=== PATIENT | male | born 1990 | race Caucasian/White ===

== ENCOUNTER 2023-11-14 20:35 | Emergency (ER) | payer SELFPAY ==
[2023-11-14 20:36] VITALS: BP 158/98; PULSE 84; RESP 14; TEMP 36.8; O2SAT 97; BMI 24.3
--- NOTE | 2023-11-14 20:43 | W.ED.WOUNDLC ---
HPI - Wound/Laceration General: Chief Complaint: Wound/Laceration Stated Complaint: dog bite Time Seen by Provider: 11/14/23 20:41 Source: patient Mode of arrival: ambulatory Limitations: no limitations History of Present Illness: Patient is a 33-year-old male who presents to ED today for evaluation of a dog bite to his right index finger that he sustained just prior to arrival after his dogs were fighting and he got in between them. Dogs are up-to-date on immunizations. Last tetanus was approximately 5 to 7 years ago. Onset (ago): hour(s) Extremity Location: Left: hand (R index finger) Place: home Patient tetanus UTD: No Context: accidental Associated symptoms: Reports no associated symptoms Review of Systems Musc: Reports: extremity pain (R index finger); Denies: extremity swelling Skin/Breast: Reports: other (dog bite R finger) Neuro: Denies: numbness in extremities or sensory changes Physical Exam Const: COMMON NORMALS: no acute distress, patient oriented x3, no limitations, alert and well nourished GENERAL APPEARANCE: cooperative Extremity: COMMON NORMALS: full ROM and capillary refill normal GENERAL: Yes normal exam except as noted RIGHT UPPER EXTREMITY: Yes hand & digits Right hand and digits: Yes inspection (2.5cm laceration overlying volar R index PIP joint), Yes ROM exam (full ROM against resistance in all plains), Yes neurovascular exam (normal) and Yes tendon exam (no tendon involvement visualized) Neuro: COMMON NORMALS: patient oriented x3, moves all extremities, no focal motor deficits and no sensory deficits noted SENSORIUM/ORIENTATION: Yes alert Procedures Laceration Laceration 1: Site: hand (index finger) Side (If applicable): right Size (cm): 2.5 Description: irregular Depth: simple, single layer Local Anesthetic: lidocaine 1% (digital block) Amount of anesthesia used (mL): 3.0 Pre-repair: wound explored and irrigated extensively Skin layer closed with: nylon Size (cm): 4-0 Number of sutures: 3 Technique: simple, interrupted Course Vital Signs: Vital signs: Vital Signs Temperature 98.2 F 11/14/23 20:36 Pulse Rate 84 11/14/23 20:36 Respiratory Rate 14 11/14/23 20:36 Blood Pressure 158/98 11/14/23 20:36 Pulse Oximetry 97 11/14/23 20:36 Oxygen Delivery Me thod Room Air 11/14/23 20:36 MDM - Wound/Laceration Medical Decision Making Wound was copiously irrigated and loosely repaired as documented. XR showing injury to the proximal interphalangeal joint. He was given antibiotics here and will be sent home with Augmentin. Patient will be placed in a finger splint and given orthopedic follow-up. Strict return to ED precautions given in regards to infection. Lab Data Radiology Impressions Finger X-Ray 11/14/23 20:47 IMPRESSION: Diffuse soft tissue swelling noted with evidence of penetrating injury volar to the 2nd proximal interphalangeal joint. No radiopaque foreign body. No acute bony injury. All radiology interpretation(s) finalized by discharge Discharge Plan Discharge Patient Disposition: Home Clinical Impression: Dog bite of finger Qualifiers: Encounter type: initial encounter Qualified Code(s): S61.259A - Open bite of unspecified finger without damage to nail, initial encounter Condition: Stable Prescriptions: New amoxicillin-pot clavulanate 875-125 mg tablet 1 tab PO BID Qty: 14 0RF Discharge Orders: Discharge ED (Routine); Ordered 11/14/23 Ordered By: June Calvillo Patient Instructions: Animal Bite (ED), Finger Laceration (ED) Activity Restrictions/Additional Instructions: Keep wound/laceration clean with warm soap and water twice daily. Monitor for signs of infection such as redness, swelling, increased pain, or drainage. Please seek medical re-evaluation if these occur. If you received sutures today these will need to be removed (unless you were told by the provider that they are absorbable). The provider should have discussed with you the length of time until removal-7 DAYS. As we discussed I will place a case management referral to get you set up with orthopedics as your x-ray looks suspicious for a fracture. You need to fill your antibiotics immediately. As we discussed monitor for infection such as redness, swelling, severe pain with range of motion of your finger, streaking up your hand or arm, fevers, or any other concerns you may have. Please seek emergency evaluation if these occur. Stay in your splint until evaluated by orthopedics. 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
--- NOTE | 2023-11-14 20:47 | XRR_ITS ---
PROCEDURE INFORMATION: Exam: XR Right Finger(s) Exam date and time: 11/14/2023 8:54 PM Age: 33 years old Clinical indication: Injury or trauma; Other: Dog bite; Index finger; Right; Additional info: Dog bite/laceration TECHNIQUE: Imaging protocol: Radiologic exam of the right fingers. Views: Minimum 2 views. COMPARISON: No relevant prior studies available. FINDINGS: Bones/joints: No evidence of acute fracture or dislocation. No erosive disease. No significant degenerative change. Soft tissues: There is diffuse soft tissue swelling of the 2nd finger with gas along the volar aspect of the proximal interphalangeal joint. No radiopaque foreign body. XR/XR finger RT min 2V 38950 IMPRESSION: Diffuse soft tissue swelling noted with evidence of penetrating injury volar to the 2nd proximal interphalangeal joint. No radiopaque foreign body. No acute bony injury.
[2023-11-14] MEDS: amoxicillin-clav 875-125 mg Tablet 1 TAB PO (21:10)
[2023-11-14] MEDS: tetanus-dipt-pertussis 0.5 mL SDV IM (21:11)
[2023-11-14] MEDS: lidocaine 2% INJ 20 mL INJECTION (21:11)
--- NOTE | 2023-11-15 07:14 | DCPLANNER ---
Message sent to Ortho for follow up appt on a dog bite to the finger - proximal phalanx fx.
== END 2023-11-14 21:57 | disposition home or self-care (01) ==
PROVIDERS: Emergency Provider Physician Assistant
DX: S61.250A Open bite of right index finger without damage to nail, initial encounter (principal); W54.0XXA Bitten by dog, initial encounter; Z23 Encounter for immunization
CPT/HCPCS: 12001; 73140; 90471; 90715; 99283

== ENCOUNTER 2025-02-24 14:38 | Emergency (ER) | payer SELFPAY ==
[2025-02-24 14:56] VITALS: BP 124/67; PULSE 80; RESP 14; TEMP 36.8; O2SAT 98
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
[2025-02-24 16:49] VITALS: BP 111/71; PULSE 74; O2SAT 97
== END 2025-02-24 16:50 | disposition home or self-care (01) ==
PROVIDERS: Emergency Provider Physician Assistant
DX: S05.11XA Contusion of eyeball and orbital tissues, right eye, initial encounter (principal); Y04.2XXA Assault by strike against or bumped into by another person, initial encounter
CPT/HCPCS: 99281

== ENCOUNTER → 2025-04-09 11:30 | Outpatient (BNVA) | payer OTHER, SELFPAY | PROVIDERS: Visit Provider Nurse Practitioner Family | DX: R25.2 Cramp and spasm (principal) | CPT/HCPCS: 80053; 85025 ==

== ENCOUNTER 2025-08-23 13:45 | Emergency (ER) | payer SELFPAY ==
[2025-08-23 14:02] VITALS: BP 147/107; PULSE 114; RESP 17; O2SAT 98; BMI 22.8
--- NOTE | 2025-08-23 14:08 | W.ED.EXTPRO ---
HPI - Extremity Problem General: Chief complaint: Extremity Injury, Lower Stated complaint: Rt foot/ankle inj Time Seen by Provider: 08/23/25 13:49 Source: patient Mode of arrival: ambulatory Limitations: no limitations History of Present Illness: 35-year-old male states he had been sitting down for a long time when he stood up he noticed that he is having a slight right foot drop and difficulty time moving it. States this happened roughly an hour ago states that it is improving is getting a lot more movement in his foot currently he denies any injuries denies any back or hip pain denies any pain in his extremity Related Data Home Medications ?Medication ?Instructions ?Recorded ?Confirmed No Known Home Medications 04/09/25 04/09/25 Allergies Allergy/AdvReac Type Severity Reaction Status Date / Time No Known Allergies Allergy Verified 04/09/25 11:45 [facility] PFSH: Social History Smoking and tobacco/nicotine status: current every day tobacco/nicotine user (vape) Physical Exam Const: COMMON NORMALS: no acute distress, patient oriented x3 and healthy appearing HENMT: COMMON NORMALS: normocephalic and atraumatic HEAD & SCALP: normocephalic and atraumatic Neck/C-Spine: COMMON NORMALS: full ROM and supple Chest: COMMONS NORMALS: normal inspection of the chest Resp: COMMON NORMALS: normal respiratory effort Back/Pelvis: LUMBAR SPINE/LOWER BACK: No lumbar spinal tenderness Extremity: COMMON NORMALS: normal to inspection NARRATIVE EXTREMITY EXAM: Slight decreased flexion of the right foot but is able to flex at most of the leg no numbness Neuro: COMMON NORMALS: patient oriented x3, moves all extremities and no focal motor deficits Psych: COMMON NORMALS: mental status grossly normal, Normal thought process present and cooperative THOUGHT PROCESS: Normal thought process present Skin: COMMON NORMALS: no rashes or lesions noted and no wounds GENERAL SKIN EXAM: no rashes or lesions noted Course Vital Signs: Vital signs: Vital Signs Pulse Rate 114 H 08/23/25 14:02 Respiratory Rate 17 08/23/25 14:02 Blood Pressure 147/107 08/23/25 14:02 Pulse Oximetry 98 08/23/25 14:02 Oxygen Delivery Me thod Room Air 08/23/25 14:02 MDM - Extremity (Nontraumatic) Medical Decision Making Patient presents here with right foot drop differential includes cord compression epidural abscess doubly is very unlikely as he has no pain in his back no saddle anesthesia his symptoms are also improving currently. Patient likely had temporary compression of his peroneal nerve from sitting for extended time causing a slight neuropathy his symptoms are already improving at this time no imaging needed he is well-appearing here did go over this with him he stable for discharge follow-up with PCP return if worsening Medical Records I reviewed the patient's medical records. 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
== END 2025-08-23 14:15 | disposition home or self-care (01) ==
PROVIDERS: Emergency Provider Emergency Medicine
DX: M21.371 Foot drop, right foot (principal); F17.290 Nicotine dependence, other tobacco product, uncomplicated
CPT/HCPCS: 99281

== ENCOUNTER 2025-09-19 16:08 | Inpatient (IN) | payer SELFPAY ==
[2025-09-19 16:19] VITALS: BP 148/84; PULSE 121; RESP 18; TEMP 37.2; O2SAT 99
--- NOTE | 2025-09-19 16:30 | XRR_ITS ---
PROCEDURE INFORMATION: Exam: XR Left Shoulder Exam date and time: 09/19/2025 4:43 PM Age: 35 years old Clinical indication: Injury or trauma; Fall; Blunt trauma (contusions or hematomas); Shoulder; Left; Additional info: Fall x2 days TECHNIQUE: Imaging protocol: Radiologic exam of the left shoulder. Views: 2 or more views. COMPARISON: No relevant prior studies available. FINDINGS: Bones/joints: Normal. Soft tissues: Normal. XR/XR shoulder LT min 2V* [id number] IMPRESSION: No acute findings.
--- NOTE | 2025-09-19 16:31 | ED_ITS ---
Documented by User: GRETA Honeycutt 09/19/25 17:48 HPI - General Adult 2 General: Chief complaint: General Medical Stated complaint: Neck pain radiating into Lt shoulder Time Seen by Provider: 09/19/25 16:16 Source: patient and family Mode of arrival: ambulatory Limitations: no limitations History of Present Illness: Patient is a 35-year-old male who is brought into the emergency department by mom for multiple complaints. Patient provides history first, he states that 2 days ago he was running from dogs, jumped a fence and fell onto rocks onto his left shoulder he has had pain since. He states this is the only thing bothering him. Of note, he is extremely agitated appearing at this time, is exhibiting tangential conversation and flight of ideas, as well as delusional thought process stating that he has been seeing Jabari all around him. However he adamantly denies any SI or HI. Mom in the room, states that he is been very emotional recently, this seems to anger the patient and he becomes verbally aggressive towards his mother. I spoke to the patient's mom outside the room, she states that he has been extremely irritable recently, has been caring around a gun and she fears for her life as well has her family's life at home. She states that he has a history of bipolar and schizophrenia, however does not see a specialist nor does he take any medications. She does note that for the last 3 years he has been out of the [employer], and has seemingly gone downhill since. She states that he has been intermittently having episodes of crying as well, seemingly for no reason. She feels that he needs to be seen by a specialist due to the concern of him hurting himself or someone else at home. She is filling affidavit at this time. complaint: Mental health evaluation, left neck/shoulder pain Onset (ago): day(s) Associated symptoms: Deny chest pain, dyspnea, headache(s), nausea, palpitations or vomiting Related Data Home Medications ?Medication ?Instructions ?Recorded ?Confirmed No Known Home Medications 04/09/2503/14 Allergies Allergy/AdvReac Type Severity Reaction Status Date / Time No Known Allergies Allergy Verified 04/09/25 11:45 Review of Systems 2 General: Reports: 10 or more systems reviewed and unremarkable except in HPI and below Const: Denies: fever(s), chills or fatigue Card: Denies: chest pain, palpitations, swelling of feet/ankles or lightheadedness Resp: Denies: dyspnea, productive cough or wheezing GI: Reports: constipation; Denies: abdominal pain, nausea, vomiting or diarrhea Musc: Reports: neck pain and joint pain (left shoulder) Neuro: Denies: headache(s), numbness in extremities or weakness in extremities Psych: Reports: irritability and other (MHE); Denies: suicidal ideation or homicidal ideation PFSH ED 2 PFSH: Social History Smoking and tobacco/nicotine status: current every day tobacco/nicotine user (vape) Physical Exam 2 Const: COMMON NORMALS: no acute distress and patient oriented x3 GENERAL APPEARANCE: cooperative ORIENTATION/CONSCIOUSNESS: Yes awake, Yes oriented to person, Yes oriented to place and Yes oriented to time HENMT: COMMON NORMALS: normocephalic, atraumatic and hearing grossly normal bilaterally HEAD & SCALP: normocephalic and atraumatic Eye: COMMON NORMALS: Equal, round and reactive pupils present, EOMs intact bilaterally and conjunctivae normal CONJUNCTIVA: Yes conjunctivae normal P UPIL: Yes Equal, round and reactive pupils present Neck/C-Spine: COMMON NORMALS: full ROM, supple and no JVD OTHER: cervical muscles nontender to palpation Resp: COMMON NORMALS: normal respiratory effort, No retractions, No use of accessory muscles and clear to auscultation bilaterally AUSCULTATION: clear to auscultation bilaterally Cardio: COMMON NORMALS: no JVD, regular rate, regular rhythm, No clicks present (Cardio), No murmurs present (Cardio) and No rub (Cardio) RATE: r egular rate RHYTHM: regular rhythm Back/Pelvis: COMMON NORMALS: thoracic and lumbar spine normal to inspection, no thoracic nor lumbar tenderness and thoraco-lumbar ROM normal Extremity: COMMON NORMALS: normal to inspection, full ROM and capillary refill normal Neuro: COMMON NORMALS: patient oriented x3, moves all extremities, no focal motor deficits and no sensory deficits noted SENSORIUM/ORIENTATION: Yes oriented to person, Yes oriented to place and Yes oriented to time Psych: ATTITUDE: Yes agitated ACTIVITY/MOTOR BEHAVIOR: Yes Avoids eye contact (attititude/behavior) SPEECH: Yes excessive MOOD & AFFECT: Yes irritable THOUGHT PROCESS: Flight of ideas present, Illogical thought process present and Tangential thought process present THOUGHT CONTENT: No Suicidality present and No Homicidality present Skin: COMMON NORMALS: no rashes or lesions noted GENERAL SKIN EXAM: no rashes or lesions noted Course 2 Vital Signs: Vital signs: Vital Signs Temperature 99.0 F 09/19/25 16:19 Pulse Rate 121 H 09/19/25 16:19 Respiratory Rate 18 09/19/25 16:19 Blood Pressure 148/84 09/19/25 16:19 Pulse Oximetry 99 09/19/25 16:19 Oxygen Delivery Me thod Room Air 09/19/25 16:19 MDM - General Adult Medical Decision Making This patient presented for evaluation of left neck pain, however mom present tells me that the patient has been exhibiting concerning signs recently, please refer to the HPI for further details. After physical exam it is clear that patient is showing concerning signs for acute psychosis. Mom feels that affidavit, feel patient best suited evaluation in the neuropsychiatric unit, spoke with Dr. Gorman who agrees to accept the patient. Dr. Tatean to put in admit orders. Lab Data 09/19/25 16:52 09/19/25 16:52 Radiology Impressions Shoulder X-Ray 09/19/25 16:30 IMPRESSION: No acute findings. Laboratory Results WBC 5.63 10^3/uL (3.29-11.43) 09/19/25 16:52 RBC 4.26 10^6/uL (3.85-5.65) 09/19/25 16:52 Hgb 13.70 g/dL (11.27-16.99) 09/19/25 16:52 Hct 39.5 % (37-53) 09/19/25 16:52 MCV 92.7 fl (82-101) 09/19/25 16:52 MCH 32.2 pg (27-33) 09/19/25 16:52 MCHC 34.7 g/dL (30-55) 09/19/25 16:52 RDW 12.5 % (12.1-15.1) 09/19/25 16:52 Plt Count 194 10^3/cmm (157-399) 09/19/25 16:52 MPV 9.9 fL (7.4-10.4) 09/19/25 16:52 Neut % (Auto) 59.3 % 09/19/25 16:52 Lymph % (Auto) 29.8 % 09/19/25 16:52 Grant % (Auto) 7.8 % 09/19/25 16:52 Eos % (Auto) 2.0 % 09/19/25 16:52 Baso % (Auto) 0.9 % 09/19/25 16:52 Neut # (Auto) 3.34 10^3/uL (1.8-7.7) 09/19/25 16:52 Lymph # (Auto) 1.7 10^3/uL (0.8-4.8) 09/19/25 16:52 Grant # (Auto) 0.4 10^3/uL (0.2-0.9) 09/19/25 16:52 Eos # (Auto) 0.1 10^3/uL (0.0-0.8) 09/19/25 16:52 Baso # (Auto) 0.1 10^3/uL (0.0-0.1) 09/19/25 16:52 Nucleated RBC % (auto) 0 % 09/19/25 16:52 Nucleated RBCs # 0.0 /100WBC 09/19/25 16:52 Sodium 141 mmol/L (136-145) 09/19/25 16:52 Potassium 3.6 mmol/L (3.5-5.1) 09/19/25 16:52 Chloride 102 mmol/L (98-107) 09/19/25 16:52 Carbon Dioxide 24 mmol/L (22-29) 09/19/25 16:52 Anion Gap 18.6 (5-19) 09/19/25 16:52 BUN 15 mg/dL (6-20) 09/19/25 16:52 Creatinine 0.8 mg/dL (0.7-1.2) 09/19/25 16:52 GFR Calculation 109.4 mL/min (90-130) 09/19/25 16:52 Glucose 107 mg/dL (65-115) 09/19/25 16:52 Calculated Osmolality 293 mOsm/kg (285-295) 09/19/25 16:52 Calcium 9.1 mg/dL (8.5-10.5) 09/19/25 16:52 Total Bilirubin 0.2 mg/dL (0.15-1.2) 09/19/25 16:52 AST 20 U/L (0-40) 09/19/25 16:52 ALT 20 U/L (0-41) 09/19/25 16:52 Alkaline Phosphatase 116 U/L (40-130) 09/19/25 16:52 Total Protein 6.8 g/dL (6.6-8.7) 09/19/25 16:52 Albumin 4.5 g/dL (3.5-5.2) 09/19/25 16:52 Globulin 2.3 g/dL (1.3-4.6) 09/19/25 16:52 Salicylates < 0.3 mg/dL (3-10) L 09/19/25 16:52 Acetaminophen < 5.0 ug/mL (10-30) L 09/19/25 16:52 Ethyl Alcohol < 10 mg/dL (0-10) 09/19/25 16:52 All radiology interpretation(s) finalized by discharge Discharge Plan Discharge Patient Disposition: Admitted As Inpatient Clinical Impression: Acute psychosis Condition: Stable Coding Level of Care Code ED Windows Support Engineer for Chg Fwd Documented by User: Emir Edward DO 09/19/25 18:27 HPI - General Adult 2 General: Chief complaint: General Medical Stated complaint: Neck pain radiating into Lt shoulder Time Seen by Provider: 09/19/25 16:16 Related Data Home Medications ?Medication ?Instructions ?Recorded ?Confirmed No Known Home Medications 04/09/2503/14 Allergies Allergy/AdvReac Type Severity Reaction Status Date / Time No Known Allergies Allergy Verified 04/09/25 11:45 PFSH ED 2 PFSH: Social History Smoking and tobacco/nicotine status: current every day tobacco/nicotine user (vape) Course 2 Vital Signs: Vital signs: Vital Signs Temperature 99.0 F 09/19/25 16:19 Pulse Rate 121 H 09/19/25 16:19 Respiratory Rate 18 09/19/25 16:19 Blood Pressure 148/84 09/19/25 16:19 Pulse Oximetry 99 09/19/25 16:19 Oxygen Delivery Me thod Room Air 09/19/25 16:19 MDM - General Adult Medical Decision Making This patient presented for evaluation of left neck pain, however mom present tells me that the patient has been exhibiting concerning signs recently, please refer to the HPI for further details. After physical exam it is clear that patient is showing concerning signs for acute psychosis. Mom feels that affidavit, feel patient best suited evaluation in the neuropsychiatric unit, spoke with Dr. Gorman who agrees to accept the patient. Dr. Edward to put in admit orders. Chart reviewed and patient discussed with midlevel. Agree with assessment and plan. Lab Data 09/19/25 16:52 09/19/25 16:52 Radiology Impressions Shoulder X-Ray 09/19/25 16:30 IMPRESSION: No acute findings. Laboratory Results WBC 5.63 10^3/uL (3.29-11.43) 09/19/25 16:52 RBC 4.26 10^6/uL (3.85-5.65) 09/19/25 16:52 Hgb 13.70 g/dL (11.27-16.99) 09/19/25 16:52 Hct 39.5 % (37-53) 09/19/25 16:52 MCV 92.7 fl (82-101) 09/19/25 16:52 MCH 32.2 pg (27-33) 09/19/25 16:52 MCHC 34.7 g/dL (30-55) 09/19/25 16:52 RDW 12.5 % (12.1-15.1) 09/19/25 16:52 Plt Count 194 10^3/cmm (157-399) 09/19/25 16:52 MPV 9.9 fL (7.4-10.4) 09/19/25 16:52 Neut % (Auto) 59.3 % 09/19/25 16:52 Lymph % (Auto) 29.8 % 09/19/25 16:52 Grant % (Auto) 7.8 % 09/19/25 16:52 Eos % (Auto) 2.0 % 09/19/25 16:52 Baso % (Auto) 0.9 % 09/19/25 16:52 Neut # (Auto) 3.34 10^3/uL (1.8-7.7) 09/19/25 16:52 Lymph # (Auto) 1.7 10^3/uL (0.8-4.8) 09/19/25 16:52 Grant # (Auto) 0.4 10^3/uL (0.2-0.9) 09/19/25 16:52 Eos # (Auto) 0.1 10^3/uL (0.0-0.8) 09/19/25 16:52 Baso # (Auto) 0.1 10^3/uL (0.0-0.1) 09/19/25 16:52 Nucleated RBC % (auto) 0 % 09/19/25 16:52 Nucleated RBCs # 0.0 /100WBC 09/19/25 16:52 Sodium 141 mmol/L (136-145) 09/19/25 16:52 Potassium 3.6 mmol/L (3.5-5.1) 09/19/25 16:52 Chloride 102 mmol/L (98-107) 09/19/25 16:52 Carbon Dioxide 24 mmol/L (22-29) 09/19/25 16:52 Anion Gap 18.6 (5-19) 09/19/25 16:52 BUN 15 mg/dL (6-20) 09/19/25 16:52 Creatinine 0.8 mg/dL (0.7-1.2) 09/19/25 16:52 GFR Calculation 109.4 mL/min (90-130) 09/19/25 16:52 Glucose 107 mg/dL (65-115) 09/19/25 16:52 Calculated Osmolality 293 mOsm/kg (285-295) 09/19/25 16:52 Calcium 9.1 mg/dL (8.5-10.5) 09/19/25 16:52 Total Bilirubin 0.2 mg/dL (0.15-1.2) 09/19/25 16:52 AST 20 U/L (0-40) 09/19/25 16:52 ALT 20 U/L (0-41) 09/19/25 16:52 Alkaline Phosphatase 116 U/L (40-130) 09/19/25 16:52 Total Protein 6.8 g/dL (6.6-8.7) 09/19/25 16:52 Albumin 4.5 g/dL (3.5-5.2) 09/19/25 16:52 Globulin 2.3 g/dL (1.3-4.6) 09/19/25 16:52 Salicylates < 0.3 mg/dL (3-10) L 09/19/25 16:52 Acetaminophen < 5.0 ug/mL (10-30) L 09/19/25 16:52 Ethyl Alcohol < 10 mg/dL (0-10) 09/19/25 16:52 Discharge Plan Discharge Patient Disposition: Admitted As Inpatient Clinical Impression: Acute psychosis Condition: Stable Coding Level of Care Code ED Windows Support Engineer for Syd Thomas
[2025-09-19 17:00] LABS: Hematocrit 39.5 % (37-53); Hemoglobin 13.70 g/dL (11.27-16.99); Mean Corpuscular HGB Conc 34.7 g/dL (30-55); Mean Corpuscular Hemoglobin 32.2 pg (27-33); Mean Corpuscular Volume 92.7 fl (82-101); Nucleated Red Blood Cells % 0 %; Platelet Count 194 10^3/cmm (157-399); Red Blood Count 4.26 10^6/uL (3.85-5.65); White Blood Count 5.63 10^3/uL (3.29-11.43)
[2025-09-19 17:19] LABS: Acetaminophen < 5.0 ug/mL (10-30); Alanine Aminotransferase 20 U/L (0-41); Albumin Level 4.5 g/dL (3.5-5.2); Alcohol Level < 10 mg/dL (0-10); Alkaline Phosphatase 116 U/L (40-130); Anion Gap 18.6 (5-19); Aspartate Amino Transferase 20 U/L (0-40); Blood Urea Nitrogen 15 mg/dL (6-20); Calcium 9.1 mg/dL (8.5-10.5); Carbon Dioxide 24 mmol/L (22-29); Chloride 102 mmol/L (98-107); Globulin 2.3 g/dL (1.3-4.6); Glucose 107 mg/dL (65-115); Osmolality Calculated 293 mOsm/kg (285-295); Potassium 3.6 mmol/L (3.5-5.1); Salicylate < 0.3 mg/dL (3-10); Sodium 141 mmol/L (136-145); Total Protein 6.8 g/dL (6.6-8.7)
[2025-09-19 19:26] LABS: PCP Screen Urine Negative (Negative)
[2025-09-19 20:15] VITALS: BP 146/81; PULSE 110; O2SAT 98
[2025-09-19 20:31] VITALS: BP 147/82; PULSE 74; RESP 19; TEMP 36.6; O2SAT 97
[2025-09-19 22:00] VITALS: BP 140/80; PULSE 94; RESP 17; TEMP 36.6; O2SAT 96
[2025-09-20 06:00] VITALS: BP 129/81; PULSE 64; RESP 19; TEMP 37.2; O2SAT 100
--- NOTE | 2025-09-20 08:19 | PC.NURSE ---
Patient is mostly isolating in his room. He did come out for breakfast. He is currently reading his bible out loud with rapid speech. His affected is elated. He denies intrusive thoughts.He stated that people don't conseptualize what really is going on in our brains. That brains are like flashlights. That we are in a [place] resident field and all brains are turned onto same frequency. Patient also verbalizes complaints of left sided back pain. He verbalized that he fell over a fence a few days ago onto some rocks. Given Tylenol 650 mg po for this.
[2025-09-20 14:00] VITALS: BP 118/76; PULSE 67; RESP 18; TEMP 37.1; O2SAT 99
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
--- NOTE | 2025-09-20 16:35 | PC.NURSE ---
Left message on voicemail to return call. Physician is asking for verification of status and past psychiatric history and treatment.
[2025-09-20] MEDS: FLU VACC TS2025-26(6MOS UP)/PF 45 MCG/0.5 ML SYRINGE IM (16:42)
--- NOTE | 2025-09-20 17:38 | PC.NURSE ---
Patient gave verbal permission for this RN to speak to his mother. Patient mother states patient was in the for 8 years which 6 of those years was active. The patient currently resides in the basement of his grandmothers home. Per mother he has lived with his grandmother off and on since age 17. She reports that patients father told her he was diagnosed with schizophrenia at that time and he seen a psychiatrist in [place]. Patient mother does not know what medication therapy he has tried in the past. She reports erratic behavior from patient including going outside in the night and yelling out in anger. He yells at elderly room mate who is handicapped for walking above his apartment. Mom reports that patient said AI isn't real, AI is my my voice.
[2025-09-20 21:43] VITALS: BP 125/71; PULSE 63; RESP 18; TEMP 36.9; O2SAT 100
--- NOTE | 2025-09-21 01:06 | PC.NURSE ---
15 minute rounding appears duplicate due to daylight savings from [id number]
[2025-09-21 06:00] VITALS: BP 107/66; PULSE 91; RESP 18; TEMP 37; O2SAT 99; BMI 21.7
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
[2025-09-21 14:00] VITALS: BP 124/77; PULSE 65; RESP 18; TEMP 37.1; O2SAT 100
--- NOTE | 2025-09-21 17:24 | P.NPUPN_ITS ---
Subjective NPU 2 Subjective: Patient presented today reporting that he is doing fine. He stands behind his [employer] computer program that is essentially 2 phones and a battery backup tomb maker helper held together by zip ties. He expresses this as a work that he undertook after studying [employer] for 3 months. We discussed some of the contents of his 96-hour hold affidavits and he was continuing to report that they are not true. He had some different reason for why he was carrying a gun around. We discussed needing to initiate medication to help with symptoms however he continues to be of the belief there are no symptoms. Mental Status Exam 2 MSE Comments: This is a slender white male and hospital scrubs with limited grooming and adequate eye contact. No abnormal movements except for mild psychomotor retardation. Cooperative with exam and mild distress. Speech was slightly decreased volume but normal rate. Mood described as fine, affect odd. Thought process organized. Thought content: Patient denied suicidal or homicidal ideation, there were no lesions reported but clear paranoid and grandiose delusions noted, he denied auditory or visual hallucinations but some of the things he reported likely represented auditory hallucinations but he does not appear to be attending to internal stimuli. Denies any thoughts to hurt or kill self or others. Denies hearing or seeing things that others cannot. Reports mood is really good. Discusses talking to language learning models (LLMs) on the phone, which was interpreted by the patient's mother as talking to voices that aren't there. Denies issues with depression and anxiety. Recent stressors include separation from ex- and family issues involving a pedophile. Memory does not go back far, but no specific issues mentioned. Attention and concentration were mostly intact and memory was unreliable at some level but he did give some accurate history at least so what we could confirm, but none were formally tested. He is alert and oriented x 3. Insight, judgment and impulse control are impaired. Vitals/I&O/Wt Last Vital Signs Temp 98.7 F 09/21/25 20:36 Pulse 68 09/21/25 20:36 Resp 18 09/21/25 20:36 BP 126/85 09/21/25 20:36 Pulse Ox 96 09/21/25 20:36 O2 Del Method Room Air 09/21/25 20:36 Weight last 48 hrs Weight 66.735 kg Data NPU 09/19/25 16:52 09/19/25 16:52 A&P Assessment and plan 1. Acute psychosis: 2. Cannabis use disorder, moderate, dependence: Plan: This is a 35-year-old white male with a history of mental health treatment going back 15 to 20 years with diagnoses of schizophrenia and other conditions in the chart as far back as 2008 who presents with likely delusional thinking about some AI driven program that he has created that will change the world without any insight into this being a psychotic thought process. Patient presented with some strange device that was basically a portable predatory animal trapper with 2 phones attached to it length by zip ties which he believes is this powerful computer program software items that is going to ultimately change the world and avoid him having to have any other employment or source of income. Plan Will review the details of the current hold and assess the assertions or allegations made regarding the patient's presentation. Collateral information will be obtained to better understand the context and verify the account provided. The situation will be evaluated day by day to determine appropriate next steps. Paperwork and documentation related to the case will be reviewed, and the patient will be provided access to the information regarding what was reported. 1. Attempt to start antipsychotic. 2. Encourage individual, group and milieu therapy. 3. Continue every 15 minute checks for safety. 4. Obtain collateral information. Did have some reports from mother confirming some aspects of his story including the fact that he did have a period of time where he was successfully able to function in the . Patient acknowledged not smoking weed in the and we expressed concern that the marijuana might be at the root of this. 5. Observe against the backdrop of the 96-hour hold. Will likely need forced medication if medications are to be involved. PDMP PDMP Reviewed: Not Reviewed Involuntary Hold Information 2 Hold Status: Legal Status: 96 Hour Hold Date/Time Hold Expires: 1 11/25/24@16:30 Attestations NPU 2 Medical Necessity Statement*: Inpatient hospitalization is medically necessary and the clinically appropriate intervention at this time. We will monitor/initiate medications and make changes as indicated. Likely length of stay 7 to 10 days. Coding Level of Care Code Acute Code for Chg Fwd Diagnoses Acute psychosis F23 Cannabis use disorder, moderate, dependence F12.20
[2025-09-21 20:36] VITALS: BP 126/85; PULSE 68; RESP 18; TEMP 37.1; O2SAT 96
[2025-09-22 06:00] VITALS: BP 116/84; PULSE 72; RESP 18; TEMP 37.2; O2SAT 99
--- NOTE | 2025-09-22 12:25 | P.NPUPN_ITS ---
Subjective NPU 2 Subjective: Patient presented today reporting doing okay. He continues to deny that there are any issues to be discussed here. We reviewed the content of his 96-hour hold affidavits and he reports that none of the things mentioned were true. We discussed that the physician manager leasing involved understands the assignment and that his reports of his concerns about how he was behaving at presentation is based on history of assessing these types of things. He also reported that none of the things his family said were true. We discussed this device that he reportedly was saying could read or scanned the room and he reports never saying that. He endorsed that he rigs up the phone power battery set up that it is using zip ties as a way to flip from talking to the AI to reading some lissa. We discussed that we would give him the opportunity to borrow to show this securities underwriter the things that he is describing he has mastered. Additionally we discussed this idea he forwarded that he would be able to create the most powerful computer ever seen for the investment at $5000 given that the most powerful computers at this point require temperature dissipators as well as huge energy sources that would themselves cost more than that. We had a lengthy discussion about the high likelihood that his cannabis use could be causing him to have the thought disorder at that we are concerned about. Continues to deny need for medication but seem to be open to the fact that he may have to discontinue marijuana use. Mental Status Exam 2 MSE Comments: This is a slender white male and hospital scrubs with limited grooming and adequate eye contact. No abnormal movements except for mild psychomotor retardation. Cooperative with exam and mild distress. Speech was slightly decreased volume but normal rate. Mood described as fine, affect odd. Thought process organized. Thought content: Patient denied suicidal or homicidal ideation, there were no lesions reported but clear paranoid and grandiose delusions noted, he denied auditory or visual hallucinations but some of the things he reported likely represented auditory hallucinations but he does not appear to be attending to internal stimuli. Denies any thoughts to hurt or kill self or others. Denies hearing or seeing things that others cannot. Reports mood is really good. Discusses talking to language learning models (LLMs) on the phone, which was interpreted by the patient's mother as talking to voices that aren't there. Denies issues with depression and anxiety. Recent stressors include separation from ex- and family issues involving a pedophile. Memory does not go back far, but no specific issues mentioned. Attention and concentration were mostly intact and memory was unreliable at some level but he did give some accurate history at least so what we could confirm, but none were formally tested. He is alert and oriented x 3. Insight, judgment and impulse control are impaired. Vitals/I&O/Wt Last Vital Signs Temp 99.0 F 09/22/25 06:00 Pulse 72 09/22/25 06:00 Resp 18 09/22/25 06:00 BP 116/84 09/22/25 06:00 Pulse Ox 99 09/22/25 06:00 O2 Del Method Room Air 09/22/25 06:00 Weight last 48 hrs Weight 66.735 kg Data NPU 09/19/25 16:52 09/19/25 16:52 A&P Assessment and plan 1. Acute psychosis: 2. Cannabis use disorder, moderate, dependence: Plan: This is a 35-year-old white male with a history of mental health treatment going back 15 to 20 years with diagnoses of schizophrenia and other conditions in the chart as far back as 2008 who presents with likely delusional thinking about some [employer] driven program that he has created that will change the world without any insight into this being a psychotic thought process. Patient presented with some strange device that was basically a portable manager battery with 2 phones attached to it length by zip ties which he believes is this powerful computer program software items that is going to ultimately change the world and avoid him having to have any other employment or source of income. Plan Will review the details of the current hold and assess the assertions or allegations made regarding the patient's presentation. Collateral information will be obtained to better understand the context and verify the account provided. The situation will be evaluated day by day to determine appropriate next steps. Paperwork and documentation related to the case will be reviewed, and the patient will be provided access to the information regarding what was reported. 1. Attempt to start antipsychotic. 2. Encourage individual, group and milieu therapy. 3. Continue every 15 minute checks for safety. 4. Obtain collateral information. Did have some reports from mother confirming some aspects of his story including the fact that he did have a period of time where he was successfully able to function in the . Patient acknowledged not smoking weed in the and we discussed concerns that the marijuana might be at the root of this. 5. Observe against the backdrop of the 96-hour hold. Will likely need forced medication if medications are to be involved. PDMP PDMP Reviewed: Not Reviewed Involuntary Hold Information 2 Hold Status: Legal Status: 96 Hour Hold Date/Time Hold Expires: 1 11/25/24@16:30 Attestations NPU 2 Medical Necessity Statement*: Inpatient hospitalization is medically necessary and the clinically appropriate intervention at this time. We will monitor/initiate medications and make changes as indicated. Likely length of stay 6-9 days. Coding Level of Care Code Acute Code for Chg Fwd Diagnoses Acute psychosis F23 Cannabis use disorder, moderate, dependence F12.20
[2025-09-22 14:00] VITALS: BP 130/76; PULSE 80; RESP 18; TEMP 37.8; O2SAT 98
--- NOTE | 2025-09-22 17:44 | PC.NURSE ---
Pt. acting strange with body movements while asking this commercial insurance underwriter what the [facility] dept. number was. Signee asked what he needed that number for and he said he needed it incase he might need to file a report. Signee assured pt. that it was safe here the doors was locked and could only be accessed by staff with a badge. Pt. mannerism is strange.
[2025-09-22 19:40] VITALS: BP 143/75; PULSE 74; RESP 16; TEMP 36.9; O2SAT 98
[2025-09-23 06:00] VITALS: BP 122/82; PULSE 86; RESP 16; TEMP 37.1; O2SAT 100
[2025-09-23 12:41] VITALS: BP 126/77; PULSE 87; RESP 16; TEMP 37.5; O2SAT 98
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
--- NOTE | 2025-09-23 17:16 | W.PM.NPUPNS ---
Subjective NPU Subjective: Patient presented today reporting that things are okay. Fully reviewed the affidavits chart and initially he had asked that this press writer be removed as his doctor secondary to concerns that I had written things that I had not experienced with him however he was taking the situation out of context and looking at the affidavit is something I had written not what was written prior to him being admitted. He continues to deny any concerns but has no explanation for other things that were noted by these other providers and his mother. His only responses that they were lying or misrepresenting facts. Mental Status Exam MSE Comments: This is a slender white male and hospital scrubs with limited grooming and adequate eye contact. No abnormal movements except for mild psychomotor retardation. Cooperative with exam and mild distress. Speech was slightly decreased volume but normal rate. Mood described as fine, affect odd. Thought process organized. Thought content: Patient denied suicidal or homicidal ideation, there were no lesions reported but clear paranoid and grandiose delusions noted, he denied auditory or visual hallucinations but some of the things he reported likely represented auditory hallucinations but he does not appear to be attending to internal stimuli. Denies any thoughts to hurt or kill self or others. Denies hearing or seeing things that others cannot. Reports mood is really good. Discusses talking to language learning models (LLMs) on the phone, which was interpreted by the patient's mother as talking to voices that aren't there. Denies issues with depression and anxiety. Recent stressors include separation from ex- and family issues involving a pedophile. Memory does not go back far, but no specific issues mentioned. Attention and concentration were mostly intact and memory was unreliable at some level but he did give some accurate history at least so what we could confirm, but none were formally tested. He is alert and oriented x 3. Insight, judgment and impulse control are impaired. Vitals/I&O/Wt Last Vital Signs Temp 98.9 F 09/23/25 20:30 Pulse 76 09/23/25 20:30 Resp 17 09/23/25 20:30 BP 127/82 09/23/25 20:30 Pulse Ox 97 09/23/25 20:30 O2 Del Method Room Air 09/23/25 20:30 Data NPU 09/19/25 16:52 09/19/25 16:52 A&P Assessment and plan 1. Acute psychosis: 2. Cannabis use disorder, moderate, dependence: Plan: This is a 35-year-old white male with a history of mental health treatment going back 15 to 20 years with diagnoses of schizophrenia and other conditions in the chart as far back as 2008 who presents with likely delusional thinking about some AI driven program that he has created that will change the world without any insight into this being a psychotic thought process. Patient presented with some strange device that was basically a portable battery container finishing hand with 2 phones attached to it length by zip ties which he believes is this powerful computer program software items that is going to ultimately change the world and avoid him having to have any other employment or source of income. Plan Will review the details of the current hold and assess the assertions or allegations made regarding the patient's presentation. Collateral information will be obtained to better understand the context and verify the account provided. The situation will be evaluated day by day to determine appropriate next steps. Paperwork and documentation related to the case will be reviewed, and the patient will be provided access to the information regarding what was reported. 1. Attempt to start antipsychotic. 2. Encourage individual, group and milieu therapy. 3. Continue every 15 minute checks for safety. 4. Obtain collateral information. Did have some reports from mother confirming some aspects of his story including the fact that he did have a period of time where he was successfully able to function in the . Patient acknowledged not smoking weed in the and we discussed concerns that the marijuana might be at the root of this. 5. Observe against the backdrop of the 96-hour hold. Will likely need forced medication if medications are to be involved. PDMP PDMP Reviewed: Not Reviewed Involuntary Hold Information Hold Status: Legal Status: 96 Hour Hold Date/Time Hold Expires: 09/25/25@16:30 Attestations NPU Medical Necessity Statement*: Inpatient hospitalization is medically necessary and the clinically appropriate intervention at this time. We will monitor/initiate medications and make changes as indicated. Likely length of stay 6-9 days. Coding Level of Care Code Acute Code for Chg Fwd Diagnoses Acute psychosis F23 Cannabis use disorder, moderate, dependence F12.20
[2025-09-23 20:30] VITALS: BP 127/82; PULSE 76; RESP 17; TEMP 37.2; O2SAT 97
[2025-09-24 06:00] VITALS: BP 132/84; PULSE 68; RESP 17; O2SAT 100
--- NOTE | 2025-09-24 07:24 | P.NPUPN_ITS ---
Subjective NPU 2 Subjective: Patient presents today reporting he is doing okay. He has been less delusional per staff reports and direct observation. We discussed his 96-hour hold will be up tomorrow. We discussed the fact that we continue to have concerns about him having psychotic symptoms possibly driven by his cannabis use however we will discuss whether conditions exist that would warrant a 21-day hold extension or not otherwise we discussed the possibility of discharge tomorrow. He denied need for medication. Mental Status Exam 2 MSE Comments: This is a slender white male and hospital scrubs with limited grooming and adequate eye contact. No abnormal movements except for mild psychomotor retardation. Cooperative with exam and mild distress. Speech was slightly decreased volume but normal rate. Mood described as fine, affect odd. Thought process organized. Thought content: Patient denied suicidal or homicidal ideation, there were no lesions reported but clear paranoid and grandiose delusions noted, he denied auditory or visual hallucinations but some of the things he reported likely represented auditory hallucinations but he does not appear to be attending to internal stimuli. Denies any thoughts to hurt or kill self or others. Denies hearing or seeing things that others cannot. Reports mood is really good. Discusses talking to language learning models (LLMs) on the phone, which was interpreted by the patient's mother as talking to voices that aren't there. Denies issues with depression and anxiety. Recent stressors include separation from ex- and family issues involving a pedophile. Memory does not go back far, but no specific issues mentioned. Attention and concentration were mostly intact and memory was unreliable at some level but he did give some accurate history at least so what we could confirm, but none were formally tested. He is alert and oriented x 3. Insight, judgment and impulse control are impaired. Vitals/I&O/Wt Last Vital Signs Temp 98.9 F 09/23/25 20:30 Pulse 68 09/24/25 06:00 Resp 17 09/24/25 06:00 BP 132/84 09/24/25 06:00 Pulse Ox 100 09/24/25 06:00 O2 Del Method Room Air 09/24/25 06:00 Data NPU 09/19/25 16:52 09/19/25 16:52 A&P Assessment and plan 1. Acute psychosis: 2. Cannabis use disorder, moderate, dependence: Plan: This is a 35-year-old white male with a history of mental health treatment going back 15 to 20 years with diagnoses of schizophrenia and other conditions in the chart as far back as 2008 who presents with likely delusional thinking about some AI driven program that he has created that will change the world without any insight into this being a psychotic thought process. Patient presented with some strange device that was basically a portable sales operations analyst with 2 phones attached to it length by zip ties which he believes is this powerful computer program software items that is going to ultimately change the world and avoid him having to have any other employment or source of income. Plan Will review the details of the current hold and assess the assertions or allegations made regarding the patient's presentation. Collateral information will be obtained to better understand the context and verify the account provided. The situation will be evaluated day by day to determine appropriate next steps. Paperwork and documentation related to the case will be reviewed, and the patient will be provided access to the information regarding what was reported. 1. Attempt to start antipsychotic. 2. Encourage individual, group and milieu therapy. 3. Continue every 15 minute checks for safety. 4. Obtain collateral information. Did have some reports from mother confirming some aspects of his story including the fact that he did have a period of time where he was successfully able to function in the . Patient acknowledged not smoking weed in the and we discussed concerns that the marijuana might be at the root of this. 5. Observe against the backdrop of the 96-hour hold. Will likely need forced medication if medications are to be involved. PDMP PDMP Reviewed: Not Reviewed Involuntary Hold Information 2 Hold Status: Legal Status: 96 Hour Hold Date/Time Hold Expires: 11/25/24@16:30 Attestations NPU 2 Medical Necessity Statement*: Inpatient hospitalization is medically necessary and the clinically appropriate intervention at this time. We will monitor/initiate medications and make changes as indicated. Likely length of stay 6-9 days. Will evaluate and decide whether there is a clear indication for a 21-day hold tomorrow otherwise we will discharge. Coding Level of Care Code Acute Code for Chg Fwd Diagnoses Acute psychosis F23 Cannabis use disorder, moderate, dependence F12.20
[2025-09-24 14:00] VITALS: BP 103/75; PULSE 83; RESP 16; TEMP 37.1; O2SAT 99
[2025-09-24 20:13] VITALS: BP 130/79; PULSE 86; RESP 17; TEMP 37.1; O2SAT 100
--- NOTE | 2025-09-25 06:38 | PC.NURSE ---
vs not collected per charge nurse, pt finally sleeping after a very long night, resp 16
--- NOTE | 2025-09-25 13:34 | P.NPUDS_ITS ---
Diagnoses at Discharge Discharge Diagnosis 1. Acute psychosis: 2. Cannabis use disorder, moderate, dependence: Reason for Visit Reason for Visit: Neck pain radiating into Lt shoulder Involuntary Hold Information Hold Status: Legal Status: 96 Hour Hold Date/Time Hold Expires: 09/25/25@16:30 Discharge Data Studies Completed and Pending: Completed Studies During Hospitalization Category Date Time Status XR shoulder LT mi n 2V* [id number] Stat Exams 09/19/25 16:30 Completed Radiology Impressions Shoulder X-Ray 09/19/25 16:30 IMPRESSION: No acute findings. Laboratory Results WBC 5.63 10^3/uL (3.2 9-11.43) 09/19/25 16:52 RBC 4.26 10^6/uL (3.8 5-5.65) 09/19/25 16:52 Hgb 13.70 g/dL (11.27 -16.99) 09/19/25 16:52 Hct 39.5 % (37-53) 09/19/25 16:52 MCV 92.7 fl (82-101) 09/19/25 16:52 MCH 32.2 pg (27-33) 09/19/25 16:52 MCHC 34.7 g/dL (30-55) 09/19/25 16:52 RDW 12.5 % (12.1-15.1 ) 09/19/25 16:52 Plt Count 194 10^3/cmm (157 -399) 09/19/25 16:52 MPV 9.9 fL (7.4-10.4) 09/19/25 16:52 Neut % (Auto) 59.3 % 09/19/25 16:52 Lymph % (Auto) 29.8 % 09/19/25 16:52 [place] % (Auto) 7.8 % 09/19/25 16:52 Eos % (Auto) 2.0 % 09/19/25 16:52 Baso % (Auto) 0.9 % 09/19/25 16:52 Neut # (Auto) 3.34 10^3/uL (1.8 -7.7) 09/19/25 16:52 Lymph # (Auto) 1.7 10^3/uL (0.8- 4.8) 09/19/25 16:52 [place] # (Auto) 0.4 10^3/uL (0.2- 0.9) 09/19/25 16:52 Eos # (Auto) 0.1 10^3/uL (0.0- 0.8) 09/19/25 16:52 Baso # (Auto) 0.1 10^3/uL (0.0- 0.1) 09/19/25 16:52 Nucleated RBC % (a uto) 0 % 09/19/25 16:52 Nucleated RBCs # 0.0 /100WBC 09/19/25 16:52 Sodium 141 mmol/L (136-1 45) 09/19/25 16:52 Potassium 3.6 mmol/L (3.5-5 .1) 09/19/25 16:52 Chloride 102 mmol/L (98-10 7) 09/19/25 16:52 Carbon Dioxide 24 mmol/L (22-29) 09/19/25 16:52 Anion Gap 18.6 (5-19) 09/19/25 16:52 BUN 15 mg/dL (6-20) 09/19/25 16:52 Creatinine 0.8 mg/dL (0.7-1. 2) 09/19/25 16:52 GFR Calculation 109.4 mL/min (90- 130) 09/19/25 16:52 Glucose 107 mg/dL (65-115 ) 09/19/25 16:52 Calculated Osmolal ity 293 mOsm/kg (285- 295) 09/19/25 16:52 Calcium 9.1 mg/dL (8.5-10 .5) 09/19/25 16:52 Total Bilirubin 0.2 mg/dL (0.15-1 .2) 09/19/25 16:52 AST 20 U/L (0-40) 09/19/25 16:52 ALT 20 U/L (0-41) 09/19/25 16:52 Alkaline Phosphata se 116 U/L (40-130) 09/19/25 16:52 Total Protein 6.8 g/dL (6.6-8.7 ) 09/19/25 16:52 Albumin 4.5 g/dL (3.5-5.2 ) 09/19/25 16:52 Globulin 2.3 g/dL (1.3-4.6 ) 09/19/25 16:52 Salicylates < 0.3 mg/dL (3-10 ) L 09/19/25 16:52 Urine Opiates Scre en Negative ng/mL (N egative) 09/19/25 18:55 Acetaminophen < 5.0 ug/mL (10-3 0) L 09/19/25 16:52 Ur Barbiturates Sc reen Negative ng/mL (N egative) 09/19/25 18:55 Ur Phencyclidine S crn Negative ng/mL (N egative) 09/19/25 18:55 Ur Amphetamines Sc reen Negative ng/mL (N egative) 09/19/25 18:55 U Benzodiazepines Scrn Negative ng/mL (N egative) 09/19/25 18:55 Urine Cocaine Scre en Negative ng/mL (N egative) 09/19/25 18:55 U Marijuana (THC) Screen Positive ng/mL (N egative) H 09/19/25 18:55 Ethyl Alcohol < 10 mg/dL (0-10) 09/19/25 16:52 Vitals: Last Vital Signs Temp 98.8 F 09/24/25 20:13 Pulse 86 09/24/25 20:13 Resp 17 09/24/25 20:13 BP 130/79 09/24/25 20:13 Pulse Ox 100 09/24/25 20:13 O2 Del Method Room Air 09/24/25 20:13 Discharge Plan Discharge Patient Disposition: Home Condition: Stable Prescriptions: No Action No Known Home Medications Discharge Order = DC NOW: Discharge Order (Routine); Ordered 09/25/25 Ordered By: Carroll Gorman Referrals: Ruiz Stevens, LARRY OPERATOR [Primary Care Provider, Nurse Practitioner] Discharge Diet: Regular Discharge Activity: Resume usual activity Patient Instructions: Opioid Safety, Patient Portal & Crista Instructions Discharge Attestations NPU Time Spent in Discharge Care*: less than 30 min Specific Discharge Activities: Specific discharge activities: educating patie nt, discussing with caseworker protective services/social workers/dc planners, documenting/other paperwork and evaluating patient/reviewing data Coding Level of Care Code Acute Code for Chg Fwd Diagnoses Acute psychosis F23 Cannabis use disorder, moderate, dependence F12.20
[2025-09-25 14:00] VITALS: BP 129/84; PULSE 94; RESP 16; TEMP 37.1; O2SAT 96
[2025-09-25 14:28] VITALS: BP 129/84; PULSE 94; RESP 16; TEMP 37.1; O2SAT 96
== END 2025-09-25 17:48 | disposition home or self-care (01) | DRG 885 ==
LOC: ER 17:44 → NP 18:44
PROVIDERS: Admitting Provider Psychiatry & Neurology Psychiatry; Emergency Provider Physician Assistant; PCP Nurse Practitioner; Visit Provider Psychiatry & Neurology Psychiatry
DX: F23 Brief psychotic disorder (principal); F12.20 Cannabis dependence, uncomplicated; F17.290 Nicotine dependence, other tobacco product, uncomplicated
CPT/HCPCS: 36415; 73030; 80053; 80306; 80307; 85025; 90471; 90656; 96372; 97150; 97165; 99285; J1885; J9999